=== PATIENT | male | born 2000 | race Two or more races ===

== ENCOUNTER 2025-09-18 21:34 | Emergency (ER) | payer MEDICAID, SELFPAY ==
[2025-09-18 21:35] VITALS: BMI 25.7
[2025-09-18 22:40] VITALS: BP 128/83; PULSE 85; RESP 17; TEMP 36.4; O2SAT 97
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
== END 2025-09-19 01:06 | disposition home or self-care (01) ==
LOC: SERX 09-19 01:40
PROVIDERS: Emergency Provider Emergency Medicine; PCP Family Medicine
DX: S69.92XA Unspecified injury of left wrist, hand and finger(s), initial encounter (principal); V99.XXXA Unspecified transport accident, initial encounter
CPT/HCPCS: 29125; 99281

== ENCOUNTER → 2025-10-16 | Outpatient (CLI) | payer MEDICAID, SELFPAY ==
--- NOTE | 2025-10-16 09:46 | XR_ITS ---
EXAMINATION: Left wrist 2 views TECHNIQUE: 1. AP lateral left wrist 2 views Date and time: October 16, 2025, 10:00 a.m. INDICATIONS: History left wrist fracture postop reduction internal fixation FINDINGS: Postop reduction internal fixation comminuted intra-articular fracture distal radial metaphysis Satisfactory alignment Orthopedic hardware satisfactory position Displaced ulnar styloid tip fracture IMPRESSION: Postop reduction internal fixation comminuted intra-articular fracture distal radial metaphysis
== END | disposition home or self-care (01) ==
PROVIDERS: PCP Family Medicine; Referring Provider Orthopaedic Surgery; Visit Provider Orthopaedic Surgery
DX: S52.572B Other intraarticular fracture of lower end of left radius, initial encounter for open fracture type I or II (principal); V23.41XA Electric (assisted) bicycle driver injured in collision with car, pick-up truck or van in traffic accident, initial encounter; Z98.890 Other specified postprocedural states
CPT/HCPCS: 73100

== ENCOUNTER → 2025-11-06 | Outpatient (CLI) | payer MEDICAID, SELFPAY ==
--- NOTE | 2025-11-06 12:03 | XR_ITS ---
EXAMINATION: Left wrist 2 views TECHNIQUE: AP lateral left wrist 2 views Date and time: November 06, 2025, 1234 hours, comparison October 16, 2025 INDICATIONS: History operative reduction internal fixation wrist fracture FINDINGS: Significant healing fracture distal radial metaphysis with stable and satisfactory alignment IMPRESSION: Significant healing fracture distal radial metaphysis with stable and satisfactory alignment
== END | disposition home or self-care (01) ==
LOC: SDIM 11:47
PROVIDERS: PCP Family Medicine; Referring Provider Orthopaedic Surgery; Visit Provider Orthopaedic Surgery
DX: S52.572B Other intraarticular fracture of lower end of left radius, initial encounter for open fracture type I or II (principal); V23.4 Motorcycle driver injured in collision with car, pick-up truck or van in traffic accident
CPT/HCPCS: 73100